=== PATIENT | male | born 1960 | race Caucasian/White ===

== ENCOUNTER 2021-12-29 18:04 | Emergency (ER) | payer BC, MEDICAID ==
[2021-12-29] MEDS ORDERED: Sodium Chloride 0.9% 10 ML Syringe FLUSH PRN (18:22)
[2021-12-29] MEDS ORDERED: Albuterol/Ipratropium 3.0-0.5 MG/3 ML Neb Soln NEB ONE (18:25)
[2021-12-29] MEDS ORDERED: Sodium Chloride 0.9% 1,000 ML IV SCH (18:30)
== END 2021-12-29 22:35 ==
LOC: FB.ED 18:04
DX: R53.1 Weakness (principal); E87.1 Hypo-osmolality and hyponatremia; M62.82 Rhabdomyolysis; R77.8 Other specified abnormalities of plasma proteins; Z85.21 Personal history of malignant neoplasm of larynx
CPT/HCPCS: 36415; 70450; 71045; 73562-RT; 80053; 82550; 84484; 85025; 93005; 93010; 94640; 99284; 99285-25; J7030; J7620